=== PATIENT | female | born 1985 | race Caucasian/White ===

== ENCOUNTER 2024-09-22 21:19 | Emergency (ER) | payer OTHER, SELFPAY ==
[2024-09-22 21:24] VITALS: BP 109/67
[2024-09-22 21:36] LABS: % Basophils 0.9 % (0-2); % Eosinophils 2.8 % (0-6); % Immature Granulocytes 0.3 % (0-0.5); % Lymphocytes 26.8 % (20.5-51.1); % Monocytes 7.5 % (1.7-9.3); % Neutrophils 61.7 % (42.2-75.2); Absolute Basophils 0.1 10^3/uL (0-0.2); Absolute Eosinophils 0.2 10^3/uL (0-0.7); Absolute Monocytes 0.6 10^3/uL (0.1-0.6); Absolute Neutrophils 4.7 10^3/uL (1.4-6.5); Hematocrit 30.7 % (37.0-47.0); Hemoglobin 10.5 g/dL (12.0-16.0); Mean Corp Hgb Conc. 34.2 g/dL (33.0-37.0); Mean Corpuscular Hgb 29.7 pg (27.0-31.0); Mean Platelet Volume 11.5 fL (7.4-10.4); Nucleated Red Blood Cells % 0 %; Platelet Count 191 10^3/uL (130-400); Red Blood Cell Count 3.53 10^6/uL (4.20-5.40); Red Cell Dist. Width 13.5 % (11.5-14.5); White Blood Cell Count 7.6 10^3/uL (4.8-10.8)
[2024-09-22 21:48] LABS: HCG, Serum Qualitative Screen Negative
[2024-09-22 21:51] LABS: ALT (SGPT) 14 U/L (0-35); AST (SGOT) 22 U/L (14-36); Albumin 3.9 g/dl (3.5-5.0); Alkaline Phosphatase 40 U/L (38-126); Blood Urea Nitrogen 15 mg/dl (7-17); Calcium 9.1 mg/dl (8.4-10.2); Carbon Dioxide 24 mmol/L (22-30); Chloride 106 mmol/L (98-107); Glucose 97 mg/dl (70-99); Lipase 301 U/L (23-300); Potassium 4.4 mmol/L (3.5-5.1); Sodium 137 mmol/L (135-145); Total Bilirubin 0.4 mg/dl (0.2-1.3); Total Protein 6.5 g/dl (6.3-8.2); eGFR > 60.00
[2024-09-22 23:02] VITALS: BP 102/62
--- NOTE | 2024-09-22 23:03 | ED.GENMED ---
History of Present Illness
General
Chief Complaint: Abdominal Pain
Time Seen by Provider: 09/22/24 22:55
History of Present Illness
History of Present Illness:
Patient is a 39-year-old woman presenting to the emergency department with abdominal pain patient states for the past 2 days she has had abdominal pain that is cramping in nature. It is in her mid abdomen. She denies any nausea vomiting diarrhea.
No vaginal bleeding or discharge. Her last period was 3 weeks ago. She does state that she has regular bowel movements but for the past few days she has been having pebble stools and has not had a bowel movement today. No straining. No urinary
symptoms. No fevers or chills. Normal p.o. This is never happened to her before. She does state that after she thought it was gas pain because she was slightly bloated.
Phy Exam
Physical Exam
Physical Exam:
GENERAL: in no acute distress
HEENT: normocephalic, extraocular movements intact, moist oral mucosa
NECK: normal inspection
RESPIRATORY: no respiratory distress, clear to auscultation bilaterally
CARDIOVASCULAR: regular rate and rhythm
ABDOMEN/: soft, non-distended, non-tender to palpation, no rebound or guarding
EXTREMITIES: non-tender, no edema/swelling
NEUROLOGIC: awake and alert, moves all extremities
SKIN: warm
Course
Orders/Labs/Results
Orders:
Orders
09/22/24 21:27
Test Result ONCE
09/22/24 21:28
Complete Blood Count/With Diff Urgent
Comprehensive Metabolic Panel Urgent
HCG, Serum Qualitative Screen Urgent
Lipase Urgent
09/22/24 23:02
Ketorolac [Toradol] 15 mg IV NOW STA
09/22/24 23:18
Ketorolac [Toradol] 15 mg IM NOW STA
09/23/24 00:09
CR Abdomen - 1 View Urgent
Comment:
Reason For Exam: bloating, constipation
09/23/24 01:13
Bisacodyl [Dulcolax] 5 mg PO NOW STA
Polyethylene Glycol Powder [Miralax] 17 grams PO ONCE ONE
Abnormal Lab Results
09/22/24
21:28
RBC 3.53 L 10^6/uL
(4.20-5.40)
Hgb 10.5 L g/dL
(12.0-16.0)
Hct 30.7 L %
(37.0-47.0)
MPV 11.5 H fL
(7.4-10.4)
Lipase 301 H U/L
(23-300)
09/22/24 21:28
09/22/24 21:28
Vital Signs
Initial and Last Documented VS:
Initial Vital Signs
Temp Pulse Resp BP Pulse Ox
98.1 F 78 16 109/67 98
09/22/24 21:24 09/22/24 21:24 09/22/24 21:24 09/22/24 21:24 09/22/24 21:24
Last Documented Vital Signs
Temp Pulse Resp BP Pulse Ox
98.1 F 76 18 101/66 97
09/22/24 21:24 09/23/24 00:00 09/23/24 00:00 09/23/24 00:00 09/23/24 00:00
MDM/Problems Addressed
Differential Diagnosis Includes:
Patient is a 39-year-old woman presenting to the emergency department with abdominal pain. Vitals are unremarkable and exam shows a soft nontender nondistended abdomen. Differential is broad but consists of constipation versus ovarian pathology
though less likely given the location of where she describes the pain. History and exam not consistent with diverticulitis.. History and exam not consistent with obstruction or other acute abdomen causes especially since the abdominal exam is
benign and she is tolerating p.o. Blood work obtained prior to evaluation is unremarkable. test is negative. After shared decision making we will start off with x-ray of the abdomen. I did offer patient ultrasound however patient would
hold off at this time.
*Critical Care Note
Total Time (30-74mins, 75-104mins- exclusive of procedures): Not Applicable
Update Note
Update Note:
X-ray per my interpretation does show significant stool burden. No signs of obstruction or pneumatosis intestinalis. We did discuss that constipation given the change in her bowel movement and no bowel movement today is likely the cause. I did
educate patient on a bowel regimen. Will give MiraLAX and Dulcolax here. Strict return precautions given. Will discharge at this time.
ED Attending Note
-
Portions of this chart may have been created with voice recognition software.� Occasional wrong word or��sound alike� substitutions may have occurred due to the inherent limitations of voice recognition software.
Discharge Plan
Departure
Patient Disposition: Home (Routine Discharge)
Date of Disposition: 09/23/24
Time of Disposition: 01:14
Patient with high blood pressure during this ER visit?: No
Discharge Problem:
Abdominal bloating, Constipation
Instructions: Constipation, Adult (DC)
Prescriptions:
No Action
No Current Medications
0
Referrals:
Sarah Pennington NP [Family Provider] -
Activity Restrictions/Additional Instructions:
You were seen in the Emergency Department today for bloating and constipation. While you were here we performed blood work, which was reassuring. Please take MiraLAX and Dulcolax as discussed.
We would like for you to follow up with your primary care physician for further evaluation. If you experience fever, worsening of your symptoms, or develop any other new or concerning symptoms, please return to the Emergency Department immediately.
Please see the attached sheet for additional information.
Interventions
Interventions:
*Risk Screen - Suicide Last Done: 09/22/24 21:24
*General Assessment Last Done: 09/22/24 21:24
*Neglect/Abuse Screening Last Done: 09/22/24 21:24
ED- Fall Risk Assessment Last Done: 09/22/24 23:30
*ED COVID-19 Vaccine History Last Done: 09/22/24 23:03
TT-Qrtixh-Qthamprwye Assessment Last Done: 09/22/24 23:30
Discharge Date and Time
Print Language: CZECH
[2024-09-22] MEDS: TORADOL 15 MG IM (23:19)
[2024-09-23] VITALS: BP 101/66
[2024-09-23 01:00] VITALS: BP 122/60
[2024-09-23] MEDS: MIRALAX 17 GRAMS PO (01:20)
[2024-09-23] MEDS: DULCOLAX 5 MG PO (01:20)
== END 2024-09-23 01:27 | disposition home or self-care (01) ==
LOC: EMR 21:19
PROVIDERS: Student in an Organized Health Care Education/Training Program; EMERGENCY PHYSICIAN Student in an Organized Health Care Education/Training Program; FAMILY PHYSICIAN Nurse Practitioner Adult Health
DX: K59.00 Constipation, unspecified (principal); R14.0 Abdominal distension (gaseous)
CPT/HCPCS: 96374; 96372; 99284; 74018; 80053; 83690; 84703; 85025